=== PATIENT | female | born 1970 | race Caucasian/White ===

== ENCOUNTER 2019-09-14 20:59 | Emergency (ER) | payer SELFPAY ==
--- NOTE | 2019-09-14 21:34 | ED.PDOC ---
History of Present Illness - General Time Seen by Provider: 09/14/19 21:01 - History of Present Illness Initial Comments: Patient presents for evaluation with significant other for evaluation of racing thoughts and difficulty with sleep. Pt has a past history of bipolar disorder and DM presenting with difficulty with sleep since this past weekend. States that she was up for 36 hours from Thursday to Thursday. States that since that time, she has been sleeping 4-5 hours/day. She has also had racing thoughts since she noticed her blood sugar was in the 300's last week. Denies any suicidal ideation, homicidal ideation, auditory or visual hallucinations, or difficulty taking care of herself. Patient states that she has not been on her medications since February after moving from [place]. Denies having a counselor here at this time. Denies recent cough, congestion, fevers, chills, chest pain, SOB, abdominal pain, dysuria, hematuria, or urinary frequency. Denies any other complaints. Allergies/Adverse Reactions: Allergies Codeine Adverse Reaction (Verified 09/14/19 21:22) Hydrocodone Adverse Reaction (Verified 09/14/19 21:22) Home Medications: Ambulatory Orders Divalproex Sodium [Depakote Tab] 500 mg PO DAILY #30 tab 09/14/19 Divalproex Sodium [Divalproex Sodium Dr] 500 mg PO 09/14/19 Metformin HCl [Metformin Hydrochloride E] 500 mg PO 09/14/19 Pravastatin Sodium 40 mg PO 09/14/19 Risperidone [Risperdal] 1 mg PO 09/14/19 Risperidone [Risperdal] 1 mg PO BEDTIME #30 tab 09/14/19 Trazodone HCl [Trazodone Hydrochloride] 50 mg PO 09/14/19 glipiZIDE [Glucotrol] 5 mg PO 09/14/19 Review of Systems - Review of Systems Constitutional: Denies: chills, fever EENTM: Denies: nose congestion Respiratory: Denies: cough, short of breath Cardiology: Denies: chest pain Gastrointestinal/Abdominal: Denies: abdominal pain, constipation, diarrhea, nausea, vomiting Musculoskeletal: Denies: back pain Skin: Denies: rash Neurological: Denies: headache Endocrine: Denies: increased urine Family Medical History - Family History Father Living Status: Cause of : Ca Physical Exam - Physical Exam General Appearance: Alert, Well Developed, Well Groomed, Well Hydrated, Well Nourished, Other - Appears concerned Eyes, Ears, Nose, Throat Exam: PERRL/EOMI, normal ENT inspection Neck: full range of motion, supple, normal inspection Respiratory: lungs clear, normal breath sounds, no respiratory distress, no accessory muscle use Cardiovascular/Chest: normal peripheral pulses, regular rate, rhythm, no edema, no gallop, no JVD, no murmur Gastrointestinal/Abdominal: non tender, soft Extremities Exam: no edema Neurological: alert, calm Appearance: appropriate appearance, appropriate insight Behavior/Eye Contact/Speech: good eye contact Thoughts/Hallucinations: normal thought pattern, no apparent hallucination Skin Exam: normal color Progress - Progress Progress: DDx: Bipolar disorder, breanna, psychosis, hypothyroidism, hyperthyroidism, UTI, electrolyte derangement, hepatitis, uremia, anemia Patient presents for evaluation of racing thoughts and difficulty with sleep. She was not in DKA but did have isolated hyperglycemia. There was no significant electrolyte derangement causing her symptoms. She was not anemic and there was no leukocytosis. TSH was WNL and not suggestive of hypothyroidism or hyperthyroidism. UA was not suggestive of UTI. Patient will be given Rx for Depakote and Risperdal. Will plan for follow-up with [facility] as she is not an active harm to herself or others, denies suicidal ideation, hallucinations and is able to care for self. Patient and family comfortable with plan for discharge home and outpatient follow-up. 09/14/19 21:35 Lab work ordered. 09/14/19 22:24 Patient denies complaints. Received home dose of Depakote. - Results/Orders Results/Orders: Laboratory Results - last 24 hr 09/14/19 09/14/19 09/14/19 21:35 21:35 21:42 WBC 5.4 RBC 4.32 Hgb 12.7 Hct 37.8 MCV 87.5 MCH 29.4 MCHC 33.6 RDW 13.6 Plt Count 254 MPV 8.3 Absolute Neuts (auto) 2.80 Absolute Lymphs (auto) 2.10 Absolute Monos (auto) 0.30 Absolute Eos (auto) 0.10 Absolute Basos (auto) 0.00 Neutrophils % 52.6 Lymphocytes % 39.0 Monocytes % 6.4 Eosinophils % 1.5 Basophils % 0.5 Sodium 134 L Potassium 3.8 Chloride 101 Carbon Dioxide 25 Anion Gap 11.8 L BUN 12 Creatinine 0.90 BUN/Creatinine Ratio 13.3 Random Glucose 162 H Serum Osmolality 271.5 L Calcium 9.6 Total Bilirubin 0.7 AST 19 ALT 18 Alkaline Phosphatase 59 Serum Total Protein 7.3 Albumin 3.9 Globulin 3.4 Albumin/Globulin Ratio 1.1 TSH 1.45 Urine Color Straw Urine Appearance Sl cloudy Urine pH 5.5 Ur Specific [place] <= 1.005 Urine Protein Negative Urine Glucose (UA) Negative Urine Ketones 15 H Urine Blood Small H Urine Nitrite Negative Urine Bilirubin Negative Urine Urobilinogen 0.2 Ur Leukocyte Esterase Negative Urine RBC 0 Urine WBC 0 Ur Epithelial Cells 0-1 Urine Bacteria Rare Departure - Departure Clinical Impression: Bipolar disorder Qualifiers: Active/Remission status: currently active Current bipolar episode type: hypomanic Qualified Code(s): F31.0 - Bipolar disorder, current episode hypomanic Time of Disposition: 22:29 Disposition: Discharge to Home or Self Care Instructions: DI for Bipolar Disorder Referrals: IVÁN CASEY [Consulting Staff] - 1-2 Weeks Prescriptions: Divalproex Sodium [Depakote Tab] 500 mg PO DAILY #30 tab Risperidone [Risperdal] 1 mg PO BEDTIME #30 tab Home Medications: Ambulatory Orders Divalproex Sodium [Depakote Tab] 500 mg PO DAILY #30 tab 09/14/19 Divalproex Sodium [Divalproex Sodium Dr] 500 mg PO 09/14/19 Metformin HCl [Metformin Hydrochloride E] 500 mg PO 09/14/19 Pravastatin Sodium 40 mg PO 09/14/19 Risperidone [Risperdal] 1 mg PO 09/14/19 Risperidone [Risperdal] 1 mg PO BEDTIME #30 tab 09/14/19 Trazodone HCl [Trazodone Hydrochloride] 50 mg PO 09/14/19 glipiZIDE [Glucotrol] 5 mg PO 09/14/19 Comments: Katrina Witt #[id number]
[2019-09-14 21:44] VITALS: TEMP 98.1
[2019-09-14] MEDS ORDERED: DIVALPROEX SODIUM DR 250 MG TAB PO ONE (22:03)
[2019-09-14] MEDS ORDERED: risperiDONE 1 MG TAB ONE (22:40)
[2019-09-14 22:56] VITALS: BP 147/99; O2SAT 99
[2019-09-15] MEDS ORDERED: risperiDONE 1 MG TAB PO SCH (21:00)
== END 2019-09-14 22:56 | disposition home or self-care (01) ==
LOC: ER 20:59
DX: F31.0 Bipolar disorder, current episode hypomanic (principal); E11.65 Type 2 diabetes mellitus with hyperglycemia; Z88.5 Allergy status to narcotic agent; Z79.84 Long term (current) use of oral hypoglycemic drugs; Z79.899 Other long term (current) drug therapy

== ENCOUNTER → 2020-02-08 | Outpatient (CLI) | payer OTHER ==
--- NOTE | 2020-02-15 13:37 | MAM ---
History: Well woman exam. Date of exam: 02/15/2020 Services provided: Bilateral full field digital screening mammography with tawanda. CAD, the images were reviewed with R2 computer aided detection. FINDINGS: Glandular tissue contains scattered areas of fibroglandular densities. No prior study for comparison. 11 mm nodule left breast 2-3 o'clock requires further evaluation. No associated microcalcification or distortion. No mammographic abnormality on the right. IMPRESSION: Incomplete study Recommendation: Directed ultrasound left breast BIRAD CATEGORY: 0 INCOMPLETE - Need additional imaging evaluation and/or prior mammograms for comparison. Exam findings and recommendations will be sent to the patient. Electronically signed by: Monique Mack MD 02/15/2020 1:36 PM CDT Workstation: [id number]
== END ==
LOC: MAMMO 10:50
PROVIDERS: ATTEND Family Medicine
DX: Z12.31 Encounter for screening mammogram for malignant neoplasm of breast (principal)

== ENCOUNTER → 2020-03-05 | Outpatient (CLI) | payer OTHER ==
--- NOTE | 2020-03-06 11:54 | US ---
EXAM DESCRIPTION: Breast,Left: Ultrasound CLINICAL HISTORY: 49 yearsFemaleABNORMAL SCREENING MAMMOGRAM . Nodule lateral middle third left breast on screening COMPARISON: Bilateral screening digital breast tomosynthesis February 07 TECHNIQUE: Transcutaneous scanning of the left breast utilizing casanova-scale and Doppler modes. Scanning performed by the assembler convertible top and Dr. Flores. FINDINGS: Ultrasound: Scanning middle third of lateral left breast hypoechoic circumscribed nodule with thin margins and not vascular. Dimensions 6.4 x 6.6 mm 10 cm from the nipple at 3:00. Mixed posterior enhancement and posterior shadowing. Most likely enlarged/reactive lymph node. Minimal if any fluid component. IMPRESSION: BIRAD CATEGORY: 3 PROBABLY BENIGN FINDING Recommendation: 6 MONTH FOLLOW-UP Findings discussed with the patient. Patient will be notified of these results in writing. Electronically signed by: Cricket Flores MD 03/06/2020 11:52 AM CDT
== END ==
LOC: MAMMO 14:47
PROVIDERS: ATTEND Family Medicine
DX: R92.8 Other abnormal and inconclusive findings on diagnostic imaging of breast (principal)

== ENCOUNTER → 2020-08-14 | Outpatient (CLI) | payer SELFPAY | LOC: YCFC.O 10:14 | PROVIDERS: ATTEND Family Medicine | DX: I10 Essential (primary) hypertension (principal) ==

== ENCOUNTER → 2020-08-27 | Outpatient (CLI) | payer SELFPAY | LOC: YCFC.O 14:15 | PROVIDERS: ATTEND Family Medicine | DX: R73.9 Hyperglycemia, unspecified (principal); R63.2 Polyphagia ==

== ENCOUNTER → 2020-09-17 | Outpatient (CLI) | payer OTHER, SELFPAY ==
--- NOTE | 2020-09-18 09:23 | US ---
EXAM DESCRIPTION: Breast,Left: Ultrasound. CLINICAL HISTORY: 49 yearsFemale6 MOS F/U. Follow-up nodule left breast. COMPARISON: Bilateral screening digital breast tomosynthesis January 2020 and directed left breast ultrasound February 2020. TECHNIQUE: Transcutaneous scanning of the left breast utilizing casanova-scale and Doppler modes. Scanning performed by the proposal specialist and Dr. Flores. FINDINGS: Scanning lateral left breast with attention to the region 10 cm from the nipple at 3:00. Hypoechoic mass with mostly circumscribed margins measuring 7.0 x 5 mm. Nonvascular. Wider than tall orientation. No posterior acoustic signature. Stable since the prior study. No fluid collection, no distinct cyst, and no large calcifications. IMPRESSION: BI-RADS CATEGORY: 3 - PROBABLY BENIGN. RECOMMENDATIONS: FOLLOW-UP: Short interval (6-month) diagnostic digital breast tomosynthesis bilaterally in January 2021. Follow-up directed left breast ultrasound.. The FINDINGS and the FOLLOW-UP plan were reviewed in person with the patient after the examination. Written communication explaining the IMPRESSION and FOLLOW-UP will be mailed to the patient and referring care provider. Electronically signed by: Cricket Flores MD 09/18/2020 9:22 AM [facility]
== END ==
LOC: MAMMO 10:14
PROVIDERS: ATTEND Family Medicine
DX: R92.8 Other abnormal and inconclusive findings on diagnostic imaging of breast (principal)